=== PATIENT | male | born 1990 | race Caucasian/White ===

== ENCOUNTER 2017-01-12 22:59 | Emergency (ER) | payer OTHER ==
[2017-01-19] MEDS ORDERED: HYDROCODON-ACE1 EAC4 PO (10:42)
[2017-01-19] MEDS ORDERED: PERCOCET 5-3251 EACH PO (16:11)
== END 2017-01-13 03:50 | disposition home or self-care (01) ==
LOC: ER1 22:59
DX: S62.326A Displaced fracture of shaft of fifth metacarpal bone, right hand, initial encounter for closed fracture (principal); W22.8XXA Striking against or struck by other objects, initial encounter; Z88.5 Allergy status to narcotic agent
CPT/HCPCS: 29125; 73130; 99283

== ENCOUNTER → 2017-01-19 | Day surgery (SDC) | payer OTHER ==
[~2017-01-19] VITALS: Ht 180.3 cm; Wt 64.0 kg
[~2017-01-19] MED LIST: HYDROCODON-ACE1 EAC4 PO; PERCOCET 5-3251 EACH PO
[2017-01-19 10:23] LABS: HEMOGLOBIN 16.9 gm/dl (14.0-17.5); RED BLOOD COUNT 5.3 M/UL (4.20-5.50); WHITE BLOOD COUNT 6.1 K/UL (4.5-11.0)
[2017-01-19 10:34] LABS: BUN/CREATININE RATIO 19 (0-10)
== END | disposition home or self-care (01) ==
LOC: OR 09:47
PROVIDERS: Orthopaedic Surgery
PROC: 0PSP04Z Reposition Right Metacarpal with Internal Fixation Device, Open Approach (ICD-10-PCS; principal; 2017-01-19 14:30)
DX: S62.326A Displaced fracture of shaft of fifth metacarpal bone, right hand, initial encounter for closed fracture (principal); F17.220 Nicotine dependence, chewing tobacco, uncomplicated; Z83.3 Family history of diabetes mellitus; Z82.49 Family history of ischemic heart disease and other diseases of the circulatory system; Z88.5 Allergy status to narcotic agent; Z79.891 Long term (current) use of opiate analgesic; Z98.890 Other specified postprocedural states; W22.8XXA Striking against or struck by other objects, initial encounter
CPT/HCPCS: 36415; 73130; 76000; 80048; 85027; C1713; J0690; J1885; J2250; J2405; J7120